=== PATIENT | female | born 1970 | race Caucasian/White ===

== ENCOUNTER 2017-07-08 11:51 | Emergency (ER) | payer OTHER ==
[~2017-07-08] VITALS: Ht 147.3 cm; Wt 56.0 kg
[2017-07-08 13:03] VITALS: BP 136/104
== END 2017-07-08 13:05 | disposition home or self-care (01) ==
LOC: EME 11:51
DX: Z04.1 Encounter for examination and observation following transport accident (principal); V44.5XXA Car driver injured in collision with heavy transport vehicle or bus in traffic accident, initial encounter; Y92.410 Unspecified street and highway as the place of occurrence of the external cause; R03.0 Elevated blood-pressure reading, without diagnosis of hypertension; Z72.0 Tobacco use
CPT/HCPCS: 99281; 99284